=== PATIENT | male | born 1980 | race Caucasian/White ===

== ENCOUNTER 2018-11-23 04:48 | Emergency (ER) | payer OTHER ==
[~2018-11-23] VITALS: Ht 170.2 cm; Wt 86.2 kg
[2018-11-23] MEDS ORDERED: ASPIRIN 325 MG TABLET PO ONE (05:00)
[2018-11-23] MEDS ORDERED: LORAZEPAM INJ 2 MG/ML VIAL IV ONE (05:00)
[2018-11-23] MEDS ORDERED: NITROGLYCERIN 0.4 MG/TAB BOTTLE SL ONE (05:00)
[2018-11-23] MEDS ORDERED: IV NS 0.9% 1,000 ML BAG IV ONE (05:00)
--- NOTE | 2018-11-23 05:00 | NUR ---
Pt NATALIE FROM [facility] WITH [employer] AT BEDSIDE. PER REPORT Pt C/O CHEST PRESSURE AND LEFT ARM NUMBNESS SINCE YESTERDAY. PER REPORT WAS SAID THAT Pt ADMITTED TO [facility] YESTERDAY. Pt IS LETHARGIC, FALLING ASLEEP EASILY. AWAKES TO NAME & TOUCH. [facility] SPEAKING. ON MONITOR. VS STABLE. NO S/S OF ACUTE DISTRESS OR SOB NOTED. RESPIRATIONS EVEN AND UNLABORED. [employer] OUTSIDE OF ROOM. Pt ALREADY SEEN BY MD AT BEDSIDE. WILL CONTINUE TO MONITOR Pt.
[2018-11-23] MEDS ORDERED: NITROGLYCERIN 0.4 MG/TAB BOTTLE ONE (05:08)
[2018-11-23] MEDS ORDERED: ASPIRIN 325 MG TABLET ONE (05:08)
[2018-11-23] MEDS ORDERED: LORAZEPAM INJ 2 MG/ML VIAL ONE (05:09)
[2018-11-23 05:12] LABS: BASOPHILS # (AUTO) 0.1 /CMM (0.0-0.2); BASOPHILS % (AUTO) 0.4 % (0.0-2.0); EOSINOPHILS % (AUTO) 0.5 % (0.0-6.0); HEMATOCRIT 45 % (39-51); HEMOGLOBIN 15.1 g/dL (13.5-17.5); LYMPHOCYTES # (AUTO) 1.9 /CMM (0.8-4.8); LYMPHOCYTES % (AUTO) 12.5 % (20.0-44.0); MEAN CORPUSCULAR HGB CONC 34 g/dl (31.0-36.0); MEAN CORPUSCULAR VOLUME 85 fL (80-96); MONOCYTES # (AUTO) 1.1 /CMM (0.1-1.30); MONOCYTES % (AUTO) 7.5 % (2.0-12.0); NEUTROPHILS # (AUTO) 12.1 /CMM (1.8-8.9); NEUTROPHILS % (AUTO) 79.1 % (43.0-81.0); PLATELET COUNT (AUTO) 174 /CMM (150-450); RED BLOOD CELL COUNT(AUTO) 5.31 MIL/uL (4.5-6.0); WHITE BLOOD COUNT (AUTO) 15.3 K/uL (4.3-11.0)
[2018-11-23 05:29] LABS: ALANINE AMINOTRANSFERASE 63 U/L (12-78); ALBUMIN 3.8 g/dL (3.4-5.0); ALKALINE PHOSPHATASE 90 U/L (46-116); ASPARTATE AMINOTRANSFERASE 46 U/L (15-37); BILIRUBIN,DIRECT 0.3 mg/dL (0.0-0.2); BILIRUBIN,TOTAL 1.6 mg/dL (0.2-1.0); CALCIUM, SERUM 9.1 mg/dL (8.5-10.1); CARBON DIOXIDE 25 mmol/L (21-32); CHLORIDE 106 mmol/L (98-107); CREATININE 0.9 mg/dL (0.6-1.3); GLUCOSE 80 mg/dL (74-106); POTASSIUM 3.8 mmol/L (3.5-5.1); SODIUM SERUM 143 mmol/L (136-145); TOTAL PROTEIN, SERUM 7.6 g/dL (6.4-8.2); UREA NITROGEN, BLOOD 15 mg/dL (7-18)
[2018-11-23 05:54] LABS: ALCOHOL, BLOOD < 3 mg/dL (0-0); MAGNESIUM 2.1 mg/dL (1.8-2.4)
[2018-11-23 05:58] LABS: ACETAMINOPHEN 0 ug/ml (10-30); SALICYLATE < 0.2 mg/dL (2.8-20.0)
--- NOTE | 2018-11-23 06:21 | NUR ---
WAS UNABLE TO OBTAIN URINE FROM Pt. STRAIGHT CATH WAS UNSUCCESSFUL. WILL TRY AGAIN LATER.
--- NOTE | 2018-11-23 07:23 | NUR ---
Pt RESTING COMFORTABLY IN BED. [employer] OUTSIDE OF ROOM. WILL ENDORSE TO DAYSHIFT RN FOR Pt'S YANG.
--- NOTE | 2018-11-23 09:01 | NUR ---
IV removed. Catheter intact and site benign. Pressure and 4x4 applied to site. No bleeding noted. A/OX3, PATIENT DISCHARGED TO [facility], PT REMAINS IN CUSTODY, MEDICALLY CLEARED.
[2018-11-23 09:03] VITALS: BP 130/79
== END 2018-11-23 09:04 ==
LOC: ER 04:51
DX: R07.89 Other chest pain (principal); F15.10 Other stimulant abuse, uncomplicated; F17.200 Nicotine dependence, unspecified, uncomplicated
CPT/HCPCS: 36415; 71045; 80048; 80076; 80305; 80307; 80329; 83735; 84484 ×2; 85025; 85730; 93005; 96374; 99284; G0480; J2060; J7030